=== PATIENT | male | born 1960 | race Caucasian/White ===

== ENCOUNTER 2018-05-28 19:56 | Emergency (ER) | payer SELFPAY ==
[2018-05-28] MEDS ORDERED: predniSONE 20 MG Tab PO ONE (19:57)
[2018-05-28] MEDS ORDERED: Take Home: predniSONE 20 MG, 2 Tab Pack PO ONE (20:34)
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
[2018-05-28] MEDS ORDERED: predniSONE 20 MG Tab PO SCH (20:45)
== END 2018-05-28 20:50 | disposition home or self-care (01) ==
LOC: CC.ED 19:56
DX: T63.441A Toxic effect of venom of bees, accidental (unintentional), initial encounter (principal); F17.210 Nicotine dependence, cigarettes, uncomplicated
CPT/HCPCS: 93005; 99283; A9270-GY